=== PATIENT | female | born 1970 | race Caucasian/White ===

== ENCOUNTER 2020-06-03 13:36 | Emergency (ER) | payer OTHER ==
--- NOTE | 2020-06-03 14:35 | ER ---
Nurse's Notes [facility] Name: Kati Reyez Age: 50 yrs Sex: Female : 1970 Arrival Date: 06/03/2020 Time: 13:39 Bed 15 Private MD: Diagnosis: Rash and other nonspecific skin eruption Presentation: 06/03 14:15 Chief complaint: Patient states: Allergic reaction to ABX Clindamycin, started taking ca1 it on 05/31/2020 for an infected cyst on the back. Hives on neck, Torso and back started yesterday at 1900. Took Benadryl, no relief. Denies difficulty swallowing, breathing. Coronavirus screen: Client denies travel out of the [place] in the last 14 days. Client reports previous positive COVID test result. Date of collection: May 18, 2020 PT cleared of COVID-19 on 05/26/2020. Ebola Screen: Patient negative for fever greater than or equal to 101.5 degrees Fahrenheit, and additional compatible Ebola Virus Disease symptoms Patient denies exposure to infectious person. Patient denies travel to an Ebola-affected area in the 21 days before illness onset. No symptoms or risks identified at this time. Initial Sepsis Screen: Does the patient meet any 2 criteria? No. Patient's initial sepsis screen is negative. Does the patient have a suspected source of infection? No. Patient's initial sepsis screen is negative. Risk Assessment: Do you want to hurt yourself or someone else? Patient reports no desire to harm self or others. Onset of symptoms was June 03, 2020. 14:15 Method Of Arrival: Ambulatory ca1 14:15 Acuity: REE 5 ca1 Triage Assessment: 14:50 General: Appears in no apparent distress. comfortable, Behavior is calm, cooperative, jd3 appropriate for age. METHODS ANALYST DATA PROCESSING: 14:22 LMP 06/02/2020 ca1 Historical: - Allergies: 14:22 PENICILLINS; ca1 14:22 Aspirin; ca1 14:22 Clindamycin; ca1 - Home Meds: 14:22 propranolol Oral [Active]; ca1 - PMHx: 14:22 Hypertension; ca1 - PSHx: 14:22 ; ca1 - Immunization history:: Adult Immunizations up to date. - Social history:: Smoking status: Patient denies any tobacco usage or history of. Screenin:50 Abuse screen: Denies threats or abuse. Nutritional screening: No deficits noted. jd3 Tuberculosis screening: No symptoms or risk factors identified. Fall Risk Ambulatory Aid- None/Bed Rest/Nurse Assist (0 pts). Gait- Normal/Bed Rest/Wheelchair (0 pts) Mental Status- Oriented to own ability (0 pts). Total Mazariegos Fall Scale indicates No Risk (0-24 pts). Assessment: 14:50 General: Appears in no apparent distress. comfortable, Behavior is calm, cooperative, jd3 appropriate for age. Pain: Denies pain. Neuro: Level of Consciousness is awake, alert, obeys commands, Oriented to person, place, time, situation. Cardiovascular: Capillary refill < 3 seconds Patient's skin is warm and dry. Respiratory: Airway is patent Respiratory effort is even, unlabored, Respiratory pattern is regular, symmetrical. GI: No signs and/or symptoms were reported involving the gastrointestinal system. : No signs and/or symptoms were reported regarding the genitourinary system. EENT: No signs and/or symptoms were reported regarding the EENT system. Derm: Skin is intact, Skin is dry, Skin is normal, Skin temperature is warm Rash noted that is itchy, red. Musculoskeletal: Circulation, motion, and sensation intact. Range of motion: intact in all extremities. Vital Signs: 14:15 BP 134 / 76; Pulse 89; Resp 16 S; Temp 98.9(O); Pulse Ox 100% on R/A; Weight 99.79 kg ca1 (R); Height 5 ft. 7 in. (170.18 cm) (R); 14:15 Body Mass Index 34.46 (99.79 kg, 170.18 cm) ca1 ED Course: 13:39 Patient arrived in ED. bg2 14:21 Triage completed. ca1 14:22 Arm band placed on right wrist. ca1 14:23 Luis Carlos Gonzalez PA is PHCP. barbara 14:23 Sadi Drummond MD is Attending Physician. m 14:50 Patient has correct armband on for positive identification. Bed in low position. Call jd3 light in reach. Side rails up X 1. Pulse ox on. NIBP on. 14:57 Lucian Rojas, KARELY is Primary Nurse. jd3 15:00 No provider procedures requiring assistance completed. Patient did not have IV access jd3 during this emergency room visit. Administered Medications: No medications were administered Outcome: 14:33 Discharge ordered by . sera 15:01 Discharged to home ambulatory. jjerel 15:01 Condition: stable 15:01 Discharge instructions given to patient, Instructed on discharge instructions, follow up and referral plans. medication usage, Demonstrated understanding of instructions, follow-up care, medications, Prescriptions given X 3. 15:02 Patient left the ED. jd3 Signatures: Luis Carlos Gonzalez PA PA jmm Glass, Brittany 2 Lucian Rojas RN RN jMaria M Ren RN RN ca1 Corrections: (The following items were deleted from the chart) 14:27 14:15 Acuity: REE 4 ca1 ca1 14:27 14:15 Pulse 89bpm; Resp 16bpm; Spontaneous; Pulse Ox 100% RA; Temp 98.9F Oral; 99.79 kg ca1 Reported; Height 5 ft. 7 in. Reported; BMI: 34.4; ca1 15:42 15:41 General: Appears in no apparent distress. comfortable, Behavior is calm, jd3 cooperative, appropriate for age, jd3
--- NOTE | 2020-06-03 14:35 | EDPHYS ---
Physician Documentation [facility] Name: Kait Reyez Age: 50 yrs Sex: Female : 1970 Arrival Date: 06/03/2020 Time: 13:39 Bed 15 Private MD: LM Physician Sadi Drummond HPI: 06/03 14:30 This 50 yrs old Female presents to ER via Ambulatory with complaints of jmm Allergic Reaction. 14:30 The patient presents with itching, rash. Onset: The symptoms/episode began/occurred jmm gradually, 1 day(s) ago. Associated signs and symptoms: Pertinent negatives: abdominal pain, Altered mental status chest pain, fever, headache, Light headed nausea, shortness of breath, swelling, Syncope vomiting. Possible causes: antibiotics, clindamycin. Denies vomiting, shortness of breath. 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 - Social history:: Smoking status: Patient denies any tobacco usage or history of. ROS: 14:30 Constitutional: Negative for fever, chills, and weight loss, Cardiovascular: Negative jmm for chest pain, palpitations, and edema, Respiratory: Negative for shortness of breath, cough, wheezing, and pleuritic chest pain. 14:30 Skin: Positive for rash. 14:30 All other systems are negative. Exam: 14:30 Constitutional: This is a well developed, well nourished patient who is awake, alert, jmm and in no acute distress. Head/Face: atraumatic. Eyes: EOMI, no conjunctival erythema appreciated ENT: Moist Mucus Membranes Neck: Trachea midline, Supple Chest/axilla: Normal chest wall appearance and motion. 14:30 Respiratory: Normal respirations, no respiratory distress appreciated Abdomen/GI: Non distended, soft Back: Normal ROM 14:30 Cardiovascular: Rate: normal, Rhythm: regular, Pulses: no pulse deficits are appreciated. 14:30 Skin: macular rash noted to the chest. 14:30 Neuro: Orientation: is normal, Mentation: is normal, Memory: is normal. 14:30 Psych: Behavior/mood is pleasant, cooperative. Vital Signs: 14:15 BP 134 / 76; Pulse 89; Resp 16 S; Temp 98.9(O); Pulse Ox 100% on R/A; Weight 99.79 kg ca1 (R); Height 5 ft. 7 in. (170.18 cm) (R); 14:15 Body Mass Index 34.46 (99.79 kg, 170.18 cm) ca1 MDM: 14:25 Patient medically screened. [facility] 14:31 Data reviewed: vital signs, nurses notes. Counseling: I had a detailed discussion with sera the patient and/or guardian regarding: the historical points, exam findings, and any diagnostic results supporting the discharge/admit diagnosis, the need for outpatient follow up, to return to the emergency department if symptoms worsen or persist or if there are any questions or concerns that arise at home. ED course: Patient is advised to d/c clindamycin. Will start new abx for skin infection. Patient is otherwise given strict return precautions. Patient understood and agrees with the plan of care. . Administered Medications: No medications were administered Disposition: 06/04 07:30 Co-signature as Attending Physician, Sadi Drummond MD I agree with the assessment and [facility] plan of care. Disposition: 06/03/20 14:33 Discharged to Home. Impression: Rash and other nonspecific skin eruption. - Condition is Stable. - Discharge Instructions: Drug Rash, Rash. - Prescriptions for Hydroxyzine HCl 25 mg Oral Tablet - take 1 tablet by ORAL route every 6 hours As needed; 30 tablet. Prednisone 20 mg Oral Tablet - take 3 tablet by ORAL route once daily for 5 days; 15 tablet. Doxycycline Hyclate 100 mg Oral Tablet - take 1 tablet by ORAL route every 12 hours; 20 tablet. - Medication Reconciliation Form, Thank You Letter, Antibiotic Education, Prescription Opioid Use form. - Follow up: Private Physician; When: 2 - 3 days; Reason: Recheck today's complaints, Continuance of care, Re-evaluation by your physician. Signatures: Sadi Drummond MD MD cha Mickail, Joel, PA PA jmm Davies, Jonathon, RN RN jd3 Maria M Stanton RN RN ca1 Corrections: (The following items were deleted from the chart) 06/03 15:02 14:33 06/03/2020 14:33 Discharged to Home. Impression: Rash and other nonspecific skin jd3 eruption. Condition is Stable. Forms are Medication Reconciliation Form, Thank You Letter, Antibiotic Education, Prescription Opioid Use. Follow up: Private Physician; When: 2 - 3 days; Reason: Recheck today's complaints, Continuance of care, Re-evaluation by your physician. sera
[2020-06-03 15:06] VITALS: BP 134/76; TEMP 98.9; O2SAT 100
== END 2020-06-03 15:02 | disposition home or self-care (01) ==
LOC: ER 13:36
DX: R21 Rash and other nonspecific skin eruption (principal); Z88.3 Allergy status to other anti-infective agents; I10 Essential (primary) hypertension; Z88.0 Allergy status to penicillin; Z88.6 Allergy status to analgesic agent
CPT/HCPCS: 99283

== ENCOUNTER 2020-06-19 09:27 | Day surgery (SDC) | payer OTHER ==
[2020-06-16 13:16] LABS: Absolute Lymphocytes (CBC) 3.2 K/uL (0.7-4.9); Basophils % 1.4 % (0-1.3); Hematocrit 40.2 % (36.0-45.0); Lymphocytes % 25.1 % (15.3-44.8); MPV 9.9 fL (7.6-11.3); RBC Red Blood Cell Count 4.14 M/uL (3.86-4.86)
[2020-06-16 13:27] LABS: Potassium 4.7 mmol/L (3.5-5.1)
--- NOTE | 2020-06-16 13:45 | RAD REPORT ---
EXAM DESCRIPTION: Cyrus Covarrubias (2 Views)06/16/2020 1:37 pm CLINICAL HISTORY: Preop COMPARISON: None FINDINGS: The lungs appear clear of acute infiltrate. The heart is normal size IMPRESSION: No acute abnormalities displayed
[2020-06-19 09:57] LABS: Specific Gravity 1.015 (1.005-1.030)
[2020-06-19] MEDS ORDERED: CIPROFLOXACIN 400mg IV 400 MG/200 ML BAG IV ONE (10:04)
[2020-06-19] MEDS ORDERED: Ringers Lactate 1,000 ML IV ONE (10:04)
[2020-06-19] MEDS ORDERED: dexAMETHasone 10 MG/ML VIAL ONE (10:12)
[2020-06-19] MEDS ORDERED: MIDAZOLAM HCL 2 MG/2 ML INJ ONE (10:12)
[2020-06-19] MEDS ORDERED: FENTANYL CITR 100 MCG/2 ML ONE (10:12)
[2020-06-19] MEDS ORDERED: LIDOCAINE 2% MPF 5 ML VIAL ONE (10:12)
[2020-06-19] MEDS ORDERED: propofoL 200 MG/20 ML VIAL IV ONE (10:12)
--- NOTE | 2020-06-19 11:47 | P.BOP ---
Preoperative diagnosis: infected back subQ mass Postoperative diagnosis: same Primary procedure: Excision of tender infected back subQ mass 3.5 x 3.5 cm Estimated blood loss: <10cc Specimen: mass Findings: infected back subQ mass Anesthesia: General Complications: None Transferred to: Recovery Room Condition: Good
[2020-06-19] MEDS ORDERED: GLYCOPYRROLATE 0.2 MG/ML SYR ONE (11:59)
[2020-06-19] MEDS ORDERED: CIPROFLOXACIN 400mg IV 400 MG/200 ML BAG IV SCH (12:00)
[2020-06-19 12:17] VITALS: O2SAT 100
[2020-06-19] MEDS ORDERED: ONDANSETRON 4 MG/2 ML VIAL ONE (12:44)
[2020-06-19] MEDS ORDERED: CODEINE 30MG/APAP 300MG TAB ONE (13:22)
[2020-06-19 14:22] VITALS: BP 129/82; TEMP 97
--- NOTE | 2020-06-20 22:15 | OP ---
Surgeon: Efraín Berumen MD Diagnosis: Infected subcutaneous back mass. Procedure: Excision biopsy of the infected subcutaneous mass. Disposition: Home. Activity: As tolerated. No heavy lifting. Plan: Follow up in my office in 1 week. Call for appointment at [phone]. Medications: Include Bactrim DS p.o. b.i.d., Tylenol No. 3 q.4 hours p.r.n. pain, Zofran 4 q.6 p.r.n . nausea. MERCEDEZ/MICHELLE Voice ID: [id number] Report ID: [id number]
== END 2020-06-19 13:25 | disposition home or self-care (01) ==
LOC: OR 09:27
PROVIDERS: ATTEND Surgery
PROC: 0JB70ZZ Excision of Back Subcutaneous Tissue and Fascia, Open Approach (ICD-10-PCS; principal; 2020-06-19 10:30)
DX: L72.0 Epidermal cyst (principal); L08.9 Local infection of the skin and subcutaneous tissue, unspecified; I10 Essential (primary) hypertension; Z88.0 Allergy status to penicillin; Z88.3 Allergy status to other anti-infective agents
CPT/HCPCS: 93005; 87070; 85025; 80048; 36415; 87205; 81025; 88304; 87075; 71046; 11404; J2704; J2250; J3010; J1100; J7120; J2405; J0744; 88305

== ENCOUNTER 2025-06-06 08:48 | Day surgery (SDC) | payer OTHER ==
[2025-06-02 16:19] LABS: Absolute Lymphocytes (CBC) 2.5 K/uL (0.7-4.9); Hematocrit 39.0 % (36.0-45.0); Hemoglobin 13.4 g/dL (12.0-15.0); MCH 32.6 pg (27.0-35.0); MCHC 34.3 g/dL (32.0-36.0); MCV 94.9 fL (80-100); MPV 9.4 fL (7.6-11.3); Nucleated RBC Absolute Count 0.0 (0-0); Nucleated Red Blood Cells % 0.2 % (0-0); RBC Red Blood Cell Count 4.11 M/uL (3.86-4.86); White Blood Count 7.90 thou/uL (4.3-10.9)
[2025-06-02 16:36] LABS: ALT/SGPT 29.0 U/L (13-56); AST/SGOT 16.0 U/L (15-37); Albumin 3.6 g/dL (3.4-5.0); Albumin/Globulin Ratio 1.2 (1.1-1.8); Alkaline Phosphatase 23.0 U/L (45-117); Anion Gap 7.4 mEq/L (5.0-15.0); BUN Blood Urea Nitrogen 12.0 mg/dL (7-18); Bilirubin Indirect, Calculated 0.3 mg/dL (0.2-0.8); Globulin 3.0 g/dL (2.3-3.5); Glucose Level 128.0 mg/dL (74-106); Lipase 28.0 U/L (13-75); Potassium 3.4 mEq/L (3.5-5.1)
[2025-06-06] MEDS ORDERED: ROCURONIUM 50 MG/5 ML VIAL IV ONE (08:58)
[2025-06-06] MEDS ORDERED: LIDOCAINE 2% MPF 5 ML VIAL ONE (08:58)
[2025-06-06] MEDS ORDERED: MIDAZOLAM HCL 2 MG/2 ML INJ ONE (08:58)
[2025-06-06] MEDS ORDERED: ONDANSETRON 4 MG/2 ML VIAL ONE (08:58)
[2025-06-06] MEDS ORDERED: FENTANYL CITR 100 MCG/2 ML ONE (08:58)
[2025-06-06] MEDS ORDERED: KETOROLAC 30 MG/ML INJ ONE (08:58)
[2025-06-06] MEDS: Ringers Lactate 1,000 ML IV ONE (09:42)
[2025-06-06] MEDS: CIPROFLOXACIN 400mg IV 400 MG/200 ML BAG IV ONE (10:14)
[2025-06-06] MEDS ORDERED: EPHEDRINE SULF 50 MG/ML VIAL ONE (10:34)
[2025-06-06] MEDS ORDERED: GLYCOPYRROLATE 0.2 MG/ML SYR ONE (10:48)
[2025-06-06] MEDS ORDERED: NEOSTIGMINE 1 MG/ML -10 ML VIAL ONE (10:48)
--- NOTE | 2025-06-06 10:51 | P.BOP ---
Preoperative diagnosis: Acute cholecystitis, symptomatic cholelithiasis, vomit, RUQ abd pain Postoperative diagnosis: same Primary procedure: Laparoscopic cholecystectomy Estimated blood loss: <10cc Specimen: gb Findings: as above. Many omental adhesions Anesthesia: General Complications: None Transferred to: Recovery Room Condition: Good
[2025-06-06] MEDS ORDERED: Mastisol Adhesive Liq ONE (10:52)
[2025-06-06 11:50] VITALS: BP 134/84; TEMP 97.4; O2SAT 100
[2025-06-06] MEDS: CODEINE 30MG/APAP 300MG TAB ONE (12:02)
--- NOTE | 2025-06-06 12:26 | OP ---
Date of Procedure: 06/06/2025 Surgeon: Efraín Berumen MD Preoperative Diagnoses: Acute cholecystitis, symptomatic cholelithiasis, vomiting, right upper quadr ant abdominal pain. Postoperative Diagnoses: Acute cholecystitis, symptomatic cholelithiasis, vomiting, right upper quad rant abdominal pain. Procedure: Laparoscopic cholecystectomy. Estimated Blood Loss: Less than 10 cc. Specimen: Gallbladder. Anesthesia: General plus local. Indications: This is the case of a 55-year-old patient who came to us with acute abdominal pain, rig ht upper quadrant pain, acute cholecystitis, multiple episodes symptomatic cholelithiasis, last night , still nauseous and vomiting. The benefits, alternatives, and risks of laparoscopic possible open c holecystectomy fully explained, which include, but not limited to, infection, bleeding, damage to adj acent structures, anesthesia complication, choledocholithiasis, bile leak, pancreatitis, IL, and even . She also understands this may not relieve any symptoms, she might need more than one surgica l intervention. She understood, signed a consent. Description Of Procedure: The patient was brought to the operating room, placed in supine position. Anesthesia was induced without complication. Abdominal area was prepped and draped in a sterile fas hion. Time-out was called. Local anesthesia was applied followed by sharp incision of the skin in t he infraumbilical region. Incision was carried down to fascia, which was opened under direct vision. Peritoneum was encountered, opened under direct vision. Vicryl #1 placed inside the fascia. Hasso n trocar was carefully introduced. Pneumoperitoneum was obtained. I placed 3 more trocars, 5 mm eac h one of them, 1 in the epigastric area, 2 in the right upper quadrant using the same technique which consisted of local anesthetic, sharp incision of the skin, introduction of the trocars under direct vision. This allowed me to visualize the gallbladder. There were too many omental adhesions to the gallbladder to be held. So, I used the LigaSure to remove some omental adhesions as it was covering the gallbladder. Then, we started to put a grasper until we were able to put a grasper in the fundus of the gallbladder, another grasper in the infundibulum, retracting the gallbladder in the inferolat eral fashion exposing the triangle of Calot, obtaining critical view. The area of lysis of adhesions using the LigaSure were intact with no bleeding. At that moment, I proceeded to identify the cystic duct and cystic artery circumferentially and a connection between those and the gallbladder were suzanne brandy identified. I proceeded to ligate those by using at least 3 clips proximal, 1 clip distal, liga tion in the middle. Same was done with the cystic artery. No bile leak. No bleeding. The gallblad marshall was removed from the liver using the Bovie cauterizer and removed from abdominal cavity using the EndoCatch through the umbilical incision. Area was inspected once again. No bile leak. No bleedin g. Area of the adhesions was removed with no bleeding. At that moment, I proceeded to remove the tr ocars under direct vision. Deflated the pneumoperitoneum. Closed the fascia with #1 Vicryl, irrigat ed subcutaneous tissue, closed that with 3-0 chromic, and the skin in subcuticular fashion with Monoc ryl and Steri-Strips on top. Sponge counts and instrument counts were correct. The patient tolerat ed the procedure well. The patient on her way to Recovery in stable condition. MERCEDEZ/MICHELLE Voice ID: [id number] Report ID: [id number]
--- NOTE | 2025-06-06 12:26 | DS ---
Diagnoses: Acute cholecystitis, symptomatic cholelithiasis, right upper quadrant abdominal pain. Procedure: Laparoscopic cholecystectomy. Condition: Stable. Disposition: Home. Activity: As tolerated. No heavy lifting. Discharge Instructions: Follow up in my office in 1 week. Call for appointment at [phone]. Keep a matthew dry for 48 hours, then may shower. Keep Steri-Strip intact. Medications were called to her jocelynn stokes. MERCEDEZ/MICHELLE Voice ID: [id number] Report ID: [id number]
== END 2025-06-06 12:26 | disposition home or self-care (01) ==
LOC: OR 08:48
PROVIDERS: ATTEND Surgery
PROC: 0FT44ZZ Resection of Gallbladder, Percutaneous Endoscopic Approach (ICD-10-PCS; principal; 2025-06-06 10:30)
DX: K80.12 Calculus of gallbladder with acute and chronic cholecystitis without obstruction (principal); R11.10 Vomiting, unspecified; R10.11 Right upper quadrant pain
CPT/HCPCS: 93005; 85025; 80048; 36415; 80076; 88304; 83690; 47562; J2704; J2710; J2003; J2250; J3010; J1100; J2405; J0744; J7120